=== PATIENT | male | born 1985 | race Caucasian/White ===

== ENCOUNTER 2020-10-16 13:51 | Emergency (ER) | payer BC, SELFPAY ==
[2020-10-16 13:55] VITALS: BP 146/82; PULSE 79; RESP 20; TEMP 36.3; O2SAT 100
--- NOTE | 2020-10-16 14:00 | DI.RAD_ITS ---
Exam(s) XR THUMB LT EXAM: XR THUMB LT CLINICAL HISTORY: trauma TECHNIQUE: COMPARISON: No exams were available for comparison FINDINGS: Three views were obtained. There is a fracture base distal phalanx of the thumb with minimal displac ement, most clearly seen on the AP view. The fracture plane appears to extend through the articular surface centrally. No other fracture seen. IMPRESSION: RADIATION DOSE DELIVERED: Total DLP
--- NOTE | 2020-10-16 14:12 | ED.GENADUL_ITS ---
Discharge Plan Disposition Patient Disposition: HOME Condition: Stable Discharge Details Clinical Impression: Laceration of left thumb with tendon involvement Primary Care Provider: Unknown,Unknown ED Provider: Kelly Tristan Home Meds and New Rx's Prescriptions: New cephalexin 500 mg tablet 500 mg PO BID 10 Days Qty: 20 RF: 0 Discharge Instructions Instructions: Laceration (ED) Additional Instructions: Please follow-up with orthopedics as discussed with Dr. Avitia. A prescription for cephalexin was sent to the pharmacy we have on file for you here in [place]. Please take the antibiotic as directed. Please splint on until follow-up with Ortho. You may redress it but keep it in and hyperextended position as much as possible. Please return to the ER or be seen sooner for any signs of infection including increased redness, swelling, drainage or any concerns. Stand Alone Forms: Work Release Referrals: Prieto Avitia MD [ [facility] STAFF PHYSICIAN] - Discharge Data Discharge Date/Time-TO BE ENTERED AT DEPARTURE: 10/16/20 16:30 Medical Decision Making 35-year-old male presents to the ER with chief complaint of left thumb laceration partial amputation which occurred approximately 45 minutes prior to arrival. Patient was using a drill when his thumb got caught in the drill bit. He on initial exam has a large laceration, at the base of his nail bed. He is unable to extend his thumb. He does have distal sensation intact. He can flex his thumb. X-rays were obtained prior to my evaluation. No other complaints, no significant past medical history. Digital block performed. Anesthesia achieved patient tolerated well. Bleeding controlled with pressure dressing. 1449: Spoke with Dr. Avitia who is on-call for orthopedic regarding patient case and details. He was able to personally view the images. Dr. Avitia here at bedside for patient evaluation and assistance with thumb reduction and laceration repair. Initially Dr. Castro recommendation was to repair and washout laceration in the OR patient's preference is to do it here locally. Wound was irrigated extensively with sterile saline and Betadine. Laceration was repaired as noted in procedure note above patient tolerated well. Patient remained anesthetized throughout procedure from the previous digital block. A postprocedure splint was applied and dressing. Post reduction x-rays obtained. Patient discharged home with strict return instructions and home care, work note given. Patient was placed on cephalexin 500 mg twice daily x10 days and patient did receive a gram of Ancef while here in the department IV. HPI General Mode of arrival: ambulatory . Date/Time Provider Initiated Documentation: 10/16/20 14:12 . Limitations to Documentation: no limitations . Information obtained by: patient . HPI Narrative: 35-year-old male presents to the ER with chief complaint of left thumb laceration partial amputation which occurred approximately 45 minutes prior to arrival. Patient was using a drill when his thumb got caught in the drill bit. He on initial exam has a large laceration, at the base of his nail bed. He is unable to extend his thumb. He does have distal sensation intact. He can flex his thumb. X-rays were obtained prior to my evaluation. No other complaints, no significant past medical history. Related Data Home Medications Medication Instructions Recorded Confirmed cephalexin 500 mg PO BID 10 Days #20 tab 10/16/20 Previous Rx's Medication Instructions Recorded cephalexin 500 mg PO BID 10 Days #20 tab 10/16/20 Allergies Allergy/AdvReac Type Severity Reaction Status Date / Time No Known Allergies Allergy Unverified 10/16/20 13:57 General Stated Complaint: Orthopedic LAKISHA: 3 Review of Systems All systems reviewed & are unremarkable except as noted in HPI and below Musculoskeletal Musculoskeletal: Reports deformity (Left thumb partial amputation venous blood oozing noted) and Reports arthralgias [facility] Surgical History (Updated 10/16/20 @ 13:58 by Ann Bustamante) H/O lateral meniscus repair of right knee Social History Smoking/Tobacco Use Status: Never Smoking risk assessment performed?: Yes Alcohol Intake: never Substance use type: marijuana Do you feel safe at home: Yes Do you feel safe in your relationship?: Yes Exam Narrative Exam Narrative: Constitutional: Alert and oriented x3. Appears stated age. Normal body habitus. Head: Normocephalic, no trauma. Eyes: Pupils PERRLA, Red reflex noted, EOM's intact. Eyelids symmetrical without lesions, discharge, or swelling. . Chest: RRR, Normal S1, S2, distal pulses intact. Resp: Lungs clear to auscultation bilaterally, no wheezes, rales, or rhonchi. Musculoskeletal: Normal gait, 5/5 strength to all four extremities.Thumb avulsion/partial amputation type injury. There is approximately 5 semicircular laceration noted from the posterior thumb pad through the anterior thumb just proximally to the enychonical fold. Skin: No suspicious rashes or lesions. Capillary refill less than 2 sec. Neurologic: Cranial nerves II-XII intact. Alert and oriented x 3. DTR's intact. Hematologic/Lymphatic: No ecchymosis, no lymphadenopathy. Course Vital Signs Vital signs: Vital Signs Temperature 36.3 C L 10/16/20 13:55 Pulse 79 10/16/20 13:55 Respiratory Rate 20 10/16/20 13:55 Blood Pressure 146/82 H 10/16/20 13:55 Pulse Oximetry 100 10/16/20 13:55 Temperature 36.3 C L 10/16/20 13:55 Temperature Source Skin 10/16/20 13:55 Pulse 79 10/16/20 13:55 Respiratory Rate 20 10/16/20 13:55 Respiratory Effort Non-Labored 10/16/20 13:58 Blood Pressure 146/82 H 10/16/20 13:55 Blood Pressure Position Sitting 10/16/20 13:55 Pulse Oximetry 100 10/16/20 13:55 Oxygen Delivery Method Room Air 10/16/20 13:55 Oxygen Flow Rate 0 10/16/20 13:55 Pain Level 6 10/16/20 13:55 Procedures Laceration Laceration 1: Site: hand Side (If applicable): left Size (cm): 5 Description: irregular and clean Depth: involves muscle layer and involves tendon Local Anesthetic: Lidocaine 1% (See digital block procedure) Pre-repair: wound explored, irrigated extensively and deep structures intact (Dr Avitia at for evaluation) Skin layer closed with: nylon (4.0) Size (cm): 4-0 Number of sutures: 5 Technique: simple, interrupted Nerve Block Nerve Block 1: Time out performed: Yes Local Anesthetic: Lidocaine 1% Amount of anesthesia used (mL): 3 Side: left Nerve Blocks: digital (For sided ring) Intraoral Nerve Block: other (At the base of the) Procedure Successful: Yes Patient Tolerated Procedure: well and no complications Complications: none
[2020-10-16] MEDS: ceFAZolin 1 GM/50 ML BAG IVPB (15:10)
--- NOTE | 2020-10-16 15:45 | DI.RAD_ITS ---
Exam(s) XR THUMB LT EXAM: XR THUMB LT CLINICAL HISTORY: one view lateral per ozzy TECHNIQUE: COMPARISON: CR XR THUMB LT from 10/16/2020 FINDINGS: Single lateral view of the thumb was obtained and shows the thumb in a volar splint. Minimally displ aced fracture of the base of the distal phalanx of the thumb was noted on three-view examination obta ined earlier today but is difficult to appreciate on this view. IMPRESSION: RADIATION DOSE DELIVERED: Total DLP
== END 2020-10-16 16:30 | disposition home or self-care (01) ==
PROVIDERS: Emergency Provider Registered Nurse Emergency
DX: S61.012A Laceration without foreign body of left thumb without damage to nail, initial encounter (principal); W29.8XXA Contact with other powered hand tools and household machinery, initial encounter
CPT/HCPCS: 12002; 64450; 96365; 99284; 73140; J0690